=== PATIENT | female | born 1965 | race Caucasian/White ===

== ENCOUNTER 2019-05-24 07:47 | Inpatient (IN) ==
[~2019-05-24 07:47] MED LIST: *HR* FentaNYL (PF) 100 MCG/2 ML VIAL ONE; *HR* Midazolam HCl 2 MG/2 ML VIAL ONE; *HR* PHENYLEPHRINE 1,000 MCG/10 ML SYRINGE IVP ONE; *HR* Propofol 200 MG/20 ML VIAL IVP ONE; *HR* Remifentanil 1 MG VIAL IVP ONE; *HR* Succinylcholine 200 MG/10 ML VIAL IVP ONE; Bacitracin 50,000 UNIT, Polymyxin B Sulfate 500,000 UNIT, Sodium Chloride IRRigation 1,... IR ONE; Dexamethasone 4 MG/ML VIAL ONE; Lidocaine -MPF 2% 2 ML VIAL ONE; Lidocaine HCL 4 ML Topical Solution (Laryng-O-Jet Kit Sterile Pak) TP ONE; Ondansetron 4 MG/2 ML VIAL ONE
[2019-05-24] MEDS ORDERED: Acetaminophen IV 1,000 MG/100 ML INFUS..BTL IVPB ONE (08:05)
[2019-05-24] MEDS ORDERED: *HR* Labetalol 20 MG/4 ML SYRINGE IVP PRN (08:05)
[2019-05-24] MEDS ORDERED: Ondansetron 4 MG/2 ML VIAL IVP ONE (08:05)
[2019-05-24] MEDS ORDERED: *HR* HYDROmorphone (PF) 1 MG/ML SYRINGE IVP PRN (08:05)
[2019-05-24] MEDS ORDERED: *HR* Promethazine 25 MG/ML VIAL IVP PRN (08:05)
[2019-05-24] MEDS ORDERED: *HR* OxyCODONE Immed Rel 5 MG TABLET PO PRN (08:05)
[2019-05-24] MEDS ORDERED: Albuterol 2.5 MG/3 ML NEBULIZER IH PRN (08:05)
[2019-05-24] MEDS ORDERED: Famotidine 20 MG/2 ML VIAL IVP ONE (08:05)
[2019-05-24] MEDS ORDERED: CeFAZolin Syr 2,000MG/20 ML 2,000 MG/20 ML SYRINGE IVPB ONE (08:09)
[2019-05-24] MEDS ORDERED: Ringers Solution, Lactated 1,000 ML IVC SCH ×2 (08:15→12:44)
[2019-05-24] MEDS ORDERED: *HR* Midazolam HCl 2 MG/2 ML VIAL ONE (09:06)
[2019-05-24] MEDS ORDERED: *HR* Propofol 200 MG/20 ML VIAL IVP ONE (09:07)
[2019-05-24] MEDS ORDERED: *HR* HYDROMORPHONE 2 MG/ML VIAL ONE (11:03)
[2019-05-24] MEDS ORDERED: Lidocaine -MPF 2% 2 ML VIAL ONE (11:25)
[2019-05-24] MEDS ORDERED: Naloxone 0.4 MG/ML INJ IVP PRN (12:44)
[2019-05-24] MEDS ORDERED: Acetaminophen 325 MG TABLET PO PRN (12:44)
[2019-05-24] MEDS ORDERED: Ondansetron 4 MG/2 ML VIAL IVP PRN (12:44)
[2019-05-24] MEDS: *HR* HYDROcodone/Acet 5/325 mg TABLET PO PRN (14:19)
[2019-05-24] MEDS: tiZANidine 4 MG TABLET PO PRN (16:15)
[2019-05-24] MEDS: *HR* OxyCODONE Immed Rel 5 MG TABLET PO PRN ×2 (16:15→20:29)
[2019-05-24] MEDS: risperiDONE 1 MG TABLET PO SCH (20:28)
[2019-05-25] MEDS: *HR* OxyCODONE Immed Rel 5 MG TABLET PO PRN ×5 (00:19→19:58)
[2019-05-25] MEDS: tiZANidine 4 MG TABLET PO PRN ×2 (02:35→11:54)
[2019-05-25] MEDS: *HR* HYDROcodone/Acet 5/325 mg TABLET PO PRN ×2 (02:35→11:54)
[2019-05-25] MEDS: Gabapentin 400 MG CAPSULE PO SCH ×3 (12:40→22:07)
[2019-05-25] MEDS: risperiDONE 1 MG TABLET PO SCH (22:07)
[2019-05-26] MEDS: *HR* OxyCODONE Immed Rel 5 MG TABLET PO PRN ×3 (00:50→12:21)
[2019-05-26] MEDS ORDERED: *HR* OxyCODONE Immed Rel 5 MG TABLET PO PRN (08:00)
[2019-05-26] MEDS: Gabapentin 400 MG CAPSULE PO SCH ×2 (09:59→15:08)
[2019-05-26] MEDS ORDERED: Simethicone 80 MG TAB.CHEW PO PRN (12:48)
[2019-05-26 18:34] VITALS: BP 102/56
== END 2019-05-26 19:25 | disposition home health service (06) | DRG 304 ==
LOC: SAMDAY 07:47 → 3NENU 12:41
PROVIDERS: ADMIT Orthopaedic Surgery Orthopaedic Surgery of the Spine; ATTEND Orthopaedic Surgery Orthopaedic Surgery of the Spine